=== PATIENT | female | born 1950 | race African-American/Black ===

== ENCOUNTER → 2017-05-15 | Outpatient (CLI) | payer MEDICARE, OTHER ==
--- NOTE | ~2017-05-15 | MR32 ---
[facility] A Service of [facility] RADIOLOGY TEXT RESULTS PATIENT: TAMMIE PEOPLES [facility] UNIT #: [id number] AGE: [address]: Maya Nguyễn MD SEX: F ORDER DR: [id number] [facility] [address] [place], [place] [address] [id number] O MR#: [id number] Acc #: [id number] NAME: TAMMIE PEOPLES : 1950 SEX: F STUDY DATE/TIME: 05/15/2017 16:09 UNIT: [facility] ROOM: STUDY DESCRIPTION: MR Cervical Wo Contrast Attending Physician: Maya Nguyễn M.D. Referring Physician: Maya Nguyễn M.D. Ordering Physician: Maya Nguyễn M.D. Primary Care Physician: Gage English M.D. MRI CENTER REPORT This report is preliminary unless electronic signature is present. EXAM MR cervical spine. INDICATION Cervical radiculopathy. Neck pain with pain radiating into the left shoulder. TECHNIQUE Multiplanar MRI of the cervical spine without contrast. COMPARISON Cervical spine radiographs of 12/02/2016. FINDINGS Vertebral body height and alignment is within normal limits. No abnormal bone marrow signal. Signal characteristics of the cervical spinal cord are within normal limits. C2-3: The disc is narrowed. No central canal or neural foraminal stenosis. Mild facet arthropathy. C3-4: There is a small posterior disc osteophyte complex centrally. This indents the anterior thecal sac resulting in a mild central canal stenosis. No significant neural foraminal stenosis. C4-5: There is a small central posterior disc osteophyte complex. This causes a mild central canal stenosis. Uncovertebral hypertrophy and facet arthropathy results in a mild left neural foraminal stenosis. C5-6: There is a moderate disc osteophyte complex centrally. This results in a moderate central canal stenosis. Uncovertebral hypertrophy and facet arthropathy contributes to moderate bilateral neural foraminal stenosis. [facility] A Service [facility] RADIOLOGY TEXT RESULTS PATIENT: TAMMIE PEOPLES LOCATION: [facility] : [birth year] UNIT #: [id number] AGE: [address]: Maya Nguyễn MD SEX: F ORDER DR: C6-7: There is a small posterior disc osteophyte complex centrally. This results in a moderate central canal stenosis. Uncovertebral hypertrophy and facet arthropathy results in moderate bilateral neural foraminal stenosis. IMPRESSION 1. Multilevel degenerative changes throughout the cervical spine most significant at C5-6 and C6-7. 2. Moderate central canal stenosis and bilateral neural foraminal stenosis at C5-6 and C6-7. Dictated by... Carlos Ramesh M.D. THIS IS AN ELECTRONICALLY VERIFIED REPORT Carlos Ramesh M.D. at 05/18/2017 4:28 PM JENNY/jaymie TD: 05/18/2017 14:04 JOB #: [id number] MRI CENTER REPORT Page 1 of 1 COPY
--- NOTE | ~2017-05-15 | MR164 ---
[facility] A Service of [facility] & [facility] RADIOLOGY TEXT RESULTS PATIENT: TAMMIE PEOPLES LOCATION: [facility] : 54 UNIT #: [id number] AGE: [address]: Maya Nguyễn MD SEX: F ORDER DR: [id number] [facility] [address] [place], [place] [address] [id number] O MR#: [id number] Acc #: [id number] NAME: TAMMIE PEOPLES : 1950 SEX: F STUDY DATE/TIME: 05/15/2017 16:45 UNIT: [facility] ROOM: STUDY DESCRIPTION: MR Shoulder Wo Contrast Lt Attending Physician: Maya Nguyễn M.D. Referring Physician: Maya Nguyễn M.D. Ordering Physician: Maya Nguyễn M.D. Primary Care Physician: Gage English M.D. MRI CENTER REPORT This report is preliminary unless electronic signature is present. EXAM MRI left shoulder, 05/15/2017 COMPARISON Left shoulder radiographs, 03/31/2016 FINDINGS There is moderate hypertrophic AC joint arthrosis with mild capsuloligamentous thickening and moderate osteophyte formation. There is lateral downsloping of the acromion with supraspinatus contact. Coracoacromial and coracoclavicular ligaments are intact. There is minimal supraspinatus tendinosis without a tear. There is no rotator cuff tear. The remainder of the rotator cuff tendons are intact. There is mild nonspecific partial atrophy of the inferior half of the infraspinatus and the anterior portion of the teres minor muscles. No mass or abnormality is noted along the suprascapular or axillary nerves. Etiology and significance are indeterminate. Biceps anchor, biceps tendon, and glenoid labrum are normal. Glenohumeral joint shows no effusion, chondral/osteochondral lesion, or loose body. There is no marrow lesion or fracture. IMPRESSION 1. 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 Correlate for any clinical evidence of impingement. 2. Mild supraspinatus tendinosis without a tear. 3. Nonspecific partial fatty atrophy of the infraspinatus and teres STS. [facility] A Service of [facility] & [facility] RADIOLOGY TEXT RESULTS PATIENT: TAMMIE PEOPLES LOCATION: [facility] : 54 UNIT #: [id number] AGE: [address]: Maya Nguyễn MD SEX: F ORDER DR: minor muscles without etiology or significance determined on this scan. 4. Biceps tendon, labrum, glenohumeral joint, and subacromial-subdeltoid bursa are normal. Dictated by... Ijeoma Ruiz M.D. THIS IS AN ELECTRONICALLY VERIFIED REPORT Ijeoma Ruiz M.D. at 05/18/2017 11:37 AM Justin TD: 05/18/2017 11:27 JOB #: [id number] MRI CENTER REPORT Page 1 of 1 COPY
== END | disposition home or self-care (01) ==
LOC: CMRI 05-13 18:00
DX: M47.22 Other spondylosis with radiculopathy, cervical region (principal); M75.82 Other shoulder lesions, left shoulder; M19.012 Primary osteoarthritis, left shoulder; M48.02 Spinal stenosis, cervical region
CPT/HCPCS: 72141; 73221

== ENCOUNTER 2017-06-22 16:14 | Emergency (ER) | payer MEDICARE, OTHER ==
[~2017-06-22] VITALS: Ht 167.6 cm; Wt 83.9 kg
--- NOTE | ~2017-06-22 | CR72 ---
[facility] A Service of [facility] RADIOLOGY TEXT RESULTS PATIENT: TAMMIE PEOPLES LOCATION: [place] : 54 UNIT #: [id number] AGE: [address]: LICO ZUÑIGA SEX: F ORDER DR: [id number] [facility] [address] [place], [place] [address] [id number] E MR#: [id number] Acc #: [id number] NAME: TAMMIE PEOPLES : 1950 SEX: F STUDY DATE/TIME: 06/22/2017 17:57 UNIT: [facility] ROOM: STUDY DESCRIPTION: CR Chest Single View Portable Attending Physician: Lico Zuñiga Aprn Ordering Physician: Lico Zuñiga Aprn Primary Care Physician: Gage English M.D. MEDICAL IMAGING REPORT This report is preliminary unless electronic signature is present EXAM Portable AP view of the chest COMPARISON March 27, 2017, July 01, 2016, January 18, 2015 INDICATIONS 67-year-old female with cough and chest congestion for one week FINDINGS There is stable mild cardiomegaly. Surgical clips are again noted in the lower neck/upper chest bilaterally. No evidence of pneumothorax, pleural effusion or acute airspace disease. Prominent breast shadows are noted over both lung bases. IMPRESSION There is stable cardiomegaly without evidence of pulmonary edema. There is hazy attenuation over both lung bases favored to represent prominent breast shadows. Appearance is not changed from multiple prior exams. If persistent concern for possible pneumonia consider a lateral view. Dictated by... Christiano Soto M.D. THIS IS AN ELECTRONICALLY VERIFIED REPORT Christiano Soto M.D. at 06/25/2017 11:05 AM BLM/angie TD: 06/23/2017 10:54 JOB #: [id number] [facility] A Service of [facility] RADIOLOGY TEXT RESULTS PATIENT: TAMMIE PEOPLES LOCATION: [place] : 54 UNIT #: [id number] AGE: [address]: LICO ZUÑIGA SEX: F ORDER DR: MEDICAL IMAGING REPORT Page 1 of 1 COPY
--- NOTE | ~2017-06-22 | CR71 ---
[facility] A Service of [facility] & [facility] RADIOLOGY TEXT RESULTS PATIENT: TAMMIE PEOPLES LOCATION: [facility] : 54 UNIT #: [id number] AGE: [address]: LICO ZUÑIGA SEX: F ORDER DR: [id number] [facility] [address] [place], [place] [address] [id number] E MR#: [id number] Acc #: [id number] NAME: TAMMIE PEOPLES : 1950 SEX: F STUDY DATE/TIME: 06/22/2017 19:16 UNIT: [facility] ROOM: STUDY DESCRIPTION: CR Chest Single View Attending Physician: Lico Zuñiga Aprn Ordering Physician: Lico Zuñiga Aprn Primary Care Physician: Gage English M.D. MEDICAL IMAGING REPORT This report is preliminary unless electronic signature is present EXAM PA and lateral chest HISTORY Cough and congestion for 1 week. FINDINGS 2 views of the chest demonstrate mild cardiac enlargement. Normal pulmonary vascularity. No airspace infiltrates or effusions. Small calcified right hilar nodes. Mild hypertrophic spurring upper and lower thoracic spine. IMPRESSION No acute findings. Mild cardiac enlargement. No active disease in the lungs. Dictated by... Harry Sanchez M.D. THIS IS AN ELECTRONICALLY VERIFIED REPORT Harry Sanchez M.D. at 06/23/2017 2:31 PM DFL/angie TD: 06/23/2017 11:57 JOB #: [id number] MEDICAL IMAGING REPORT Page 1 of 1 COPY
== END 2017-06-22 22:06 | disposition home or self-care (01) ==
LOC: CED 16:14 → CFTX 16:14
DX: J06.9 Acute upper respiratory infection, unspecified (principal); E11.9 Type 2 diabetes mellitus without complications; I10 Essential (primary) hypertension; J44.9 Chronic obstructive pulmonary disease, unspecified; K21.9 Gastro-esophageal reflux disease without esophagitis; Z90.49 Acquired absence of other specified parts of digestive tract; Z90.710 Acquired absence of both cervix and uterus; F17.210 Nicotine dependence, cigarettes, uncomplicated; Z86.73 Personal history of transient ischemic attack (TIA), and cerebral infarction without residual deficits
CPT/HCPCS: 71010; 71020; 99284